=== PATIENT | male | born 1985 | race Two or more races ===

== ENCOUNTER 2017-06-06 13:04 | Emergency (ER) | payer OTHER ==
[2017-06-06 13:13] VITALS: BP 138/89; PULSE 65; TEMP 98.1; BMI 25.7
--- NOTE | 2017-06-06 13:51 | PDOC ---
History of Present Illness - General History Source: Patient Exam Limitations: No Limitations - History of Present Illness Initial Comments: 06/06/17 13:53 Patient is a 31 year old male with no pmhx who presents today with right great toe pain. Patient states that he was playing soccer yesterday as someone kicked up his right great toe. Patient reports pain and swelling to the area. He also has difficulty bearing weight. He denies any numbness or tingling. <Coreen Jones - Last Filed: 06/06/17 13:53> <Asmita Vazquez - Last Filed: 06/06/17 15:03> - General Chief Complaint: Injury Stated Complaint: RT FOOT PAIN Time Seen by Provider: 06/06/17 13:45 Past History <Coreen Jones - Last Filed: 06/06/17 13:53> - Past Medical History Other medical history: PATIENT DENIES MEDICAL HX - Psycho/Social/Smoking Cessation Hx Anxiety: No Suicidal Ideation: No Smoking History: Never smoked Hx Alcohol Use: Yes Drug/Substance Use Hx: No <Asmita Vazquez - Last Filed: 06/06/17 15:03> - Past Medical History Allergies/Adverse Reactions: Allergies Allergy/AdvReac Type Severity Reaction Status Date / Time No Known Allergies Allergy Verified 06/06/17 13:13 Review of Systems - Review of Systems Able to Perform ROS?: Yes Comments:: 06/06/17 13:53 CONSTITUTIONAL: Absent: fever, no chills, no fatigue EYES: Absent: visual changes ENT: Absent: ear pain, no sore throat CARDIOVASCULAR: Absent: chest pain, no palpitations RESPIRATORY: Absent: cough, no SOB GI: Absent: abdominal pain, no nausea, no vomiting, no constipation, no diarrhea GENITOURINARY: Absent: dysuria, no frequency, no hematuria MUSCULOSKELETAL: Present: right foot pain Absent: back pain, no arthralgia, no myalgia SKIN: Absent: rash <Coreen Jones - Last Filed: 06/06/17 13:53> *Physical Exam - Vital Signs Last Vital Signs Temp Pulse Resp BP Pulse Ox 98.1 F 65 16 138/89 100 06/06/17 13:10 06/06/17 13:10 06/06/17 13:10 06/06/17 13:10 06/06/17 13:10 - Physical Exam Comments: 06/06/17 13:54 GENERAL: Well-appearing, well-nourished. No apparent distress. HEENT: Normocephalic, atraumatic. PERRL, EOM intact. CARDIOVASCULAR: Normal S1, S2. Regular rate and rhythm. PULMONARY: Clear to auscultation bilaterally. ABDOMEN: Soft, non-distended, non-tender. EXTREMITIES: (+)pain and swelling to the right foot, pain with weight bearing, ecchymosis to right great toe and distal end of right foot, mild deformity to the proximal end of right great toe. Good sensation throughout, no numbness or tingling. SKIN: Warm, dry. No rash NEUROLOGICAL: No focal neurological deficits. <Coreen Jones - Last Filed: 06/06/17 13:53> - Vital Signs Last Vital Signs Temp Pulse Resp BP Pulse Ox 98.1 F 65 16 138/89 100 06/06/17 13:10 06/06/17 13:10 06/06/17 13:10 06/06/17 13:10 06/06/17 13:10 <Asmita Vazquez - Last Filed: 06/06/17 15:03> ED Treatment Course - RADIOLOGY Radiograph Interpretation: 06/06/17 15:01 xray negative for fracture. <Asmita Vazquez - Last Filed: 06/06/17 15:03> *DC/Admit/Observation/Transfer - Attestations Scribe Attestion: 06/06/17 13:56 Documentation prepared by YANNI De La Cruz, acting as medical professionals for Asmita Vazquez NP. <Coreen Jones - Last Filed: 06/06/17 13:53> <Asmita Vazquez - Last Filed: 06/06/17 15:03> Diagnosis at time of Disposition: Right foot sprain Qualifiers: Encounter type: initial encounter Qualified Code(s): S93.601A - Unspecified sprain of right foot, initial encounter - Discharge Dispostion Disposition: HOME - Referrals Referrals: King Torres MD [Staff Physician] - - Patient Instructions Printed Discharge Instructions: DI for Foot Sprain Additional Instructions: keep foot splint as tolerated. rest ICE, as much as possible. take ibuprofen every 6 hours as needed for pain. follow up with your doctor/ ortho pedic as soon as possible. - Post Discharge Activity Work/School Note: Back to Work
[2017-06-06] MEDS ORDERED: IBUPROFEN 600 MG TABLET (FP) PO ONE ×2 (13:52→13:54)
== END 2017-06-06 15:29 | disposition home or self-care (01) ==
LOC: JERFT 13:04
DX: S93.601A Unspecified sprain of right foot, initial encounter (principal); W50.0XXA Accidental hit or strike by another person, initial encounter; Y93.66 Activity, soccer; Y92.322 Soccer field as the place of occurrence of the external cause; Y99.8 Other external cause status
CPT/HCPCS: 73630-TC-RT; 99281-25

== ENCOUNTER 2018-09-15 15:56 | Emergency (ER) | payer OTHER ==
[2018-09-15 16:08] VITALS: BP 125/68; PULSE 66; BMI 25.2
[2018-09-15] MEDS ORDERED: ERYTHROMYCIN 0.5% OPHTHALMIC OINTMENT 3.5 GM TUBE ONE (16:47)
[2018-09-15] MEDS ORDERED: ERYTHROMYCIN 0.5% OPHTHALMIC OINTMENT 3.5 GM TUBE OS ONE (16:53)
--- NOTE | 2018-09-15 17:00 | PDOC ---
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 States used 3 different eyelashes but still feels foreign body with tearing Severity: reports: mild, moderate Pain Location: reports: face Associated Symptoms (Fall): denies symptoms Past History - Travel Traveled outside of the country in the last 30 days: No Close contact w/someone who was outside of country & ill: No - Past Medical History Allergies/Adverse Reactions: Allergies Allergy/AdvReac Type Severity Reaction Status Date / Time No Known Allergies Allergy Verified 09/15/18 16:29 Home Medications: Ambulatory Orders Erythromycin 0.5% Eye Ointment [Erythromycin 0.5% Eye Ointment -] 1 applic OS TID #1 tube 09/15/18 COPD: No - Suicide/Smoking/Psychosocial Hx Smoking History: Never smoked Hx Alcohol Use: Yes Drug/Substance Use Hx: No Review of Systems - Review of Systems Able to Perform ROS?: Yes Is the patient limited [place] Citizen proficient: Yes Constitutional: Yes: Symptoms Reported HEENTM: Yes: Symptoms Reported, See HPI, Eye Pain, Blurred Vision, Tearing Respiratory: No: Symptoms reported Cardiac (ROS): No: Symptoms Reported Integumentary: No: Symptoms Reported Neurological: No: Symptoms reported All Other Systems: Reviewed and Negative *Physical Exam - Vital Signs Last Vital Signs Temp Pulse Resp BP Pulse Ox 66 18 125/68 99 09/15/18 15:59 09/15/18 15:59 09/15/18 15:59 09/15/18 15:59 - Physical Exam General Appearance: Yes: Nourished, Appropriately Dressed, Apparent Distress, Mild Distress HEENT: positive: ETTA, Normal ENT Inspection, TMs Normal, Pharynx Normal, Other (notedf FB at 9:00 mid iris of right eye with injection, no purulent drainage, visual acuity is within normal limits ) Neck: positive: Supple. negative: Tender Gastrointestinal/Abdominal: positive: Normal Bowel Sounds, Soft. 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 Unable to extract, erythromycin ointment applied, and encouraged follow-up with ophthalmology tomorrow Medical Decision Making - Medical Decision Making 09/15/18 17:20 Tetracaine applied to left eye with 3 attempts at foreign body removal unsuccessful. Noted firm piece of what appears to be metallic substance embedded cornea at 9:00 over iris of the left eye. Given erythromycin ointment with instructions for use, given 2 Percocet tablets for pain relief tonight, and instructed to follow up tomorrow as needed for worsened pain, visual changes , or inability to contact ophthalmology *DC/Admit/Observation/Transfer Diagnosis at time of Disposition: Corneal foreign body Qualifiers: Encounter type: initial encounter Laterality: left Qualified Code(s): T15.02XA - Foreign body in cornea, left eye, initial encounter - Discharge Dispostion Disposition: HOME Condition at time of disposition: Stable Decision to Admit order: No - Referrals - Patient Instructions Printed Discharge Instructions: DI for Corneal Foreign Body-Eye Additional Instructions: Rest, avoid rubbing eyes Wash hands, use eye drops as directed, wash hands after use May use eye lubricating drops as often as needed erythromycin ointment, one thin film 3 times a day for 5 days Tylenol or ibuprofen for pain relief May use 1 or 2 Percocet tablets for severe pain Avoid contact with others until redness and discharge is gone from eyes. Followup with ophthalmology in one to 2 days for thorough exam Return to emergency department for worsened pain, swelling, vision problems. Dr. You Larkin [phone] OPTHOMOLOGIST - Post Discharge Activity Forms/Work/School Notes: Back to Work
[2018-09-15] MEDS ORDERED: IBUPROFEN 600 MG TABLET (FP) PO ONE (17:16)
== END 2018-09-15 17:27 | disposition home or self-care (01) ==
LOC: JERFT 15:56
PROC: 08C9XZZ Extirpation of Matter from Left Cornea, External Approach (ICD-10-PCS; principal; 2018-09-15)
DX: T15.02XA Foreign body in cornea, left eye, initial encounter (principal)
CPT/HCPCS: 99281-25